=== PATIENT | female | born 1965 | race Caucasian/White ===

== ENCOUNTER 2016-11-22 16:49 | Observation (INO) | payer OTHER ==
[~2016-11-22] VITALS: Ht 154.9 cm; Wt 126.2 kg
--- NOTE | ~2016-11-22 | EKG ---
PATIENT: BRADEN TRACY UNIT #: [id number] Ventricular Rate: 70 BPM Atrial Rate: 70 BPM P-R Interval: 170 ms QRS Duration: 78 ms Q-T Interval: 434 ms QTC Calculation(Bezet): 468 ms P [place]: 58 degrees Calculated R [place]: 12 degrees Calculated T [place]: 68 degrees Diagnosis Line: Normal sinus rhythm Diagnosis Line: Normal ECG Diagnosis Line: When compared with ECG of 22-NOV-2016 16:51, Diagnosis Line: No significant change was found Diagnosis Line: Confirmed by OSMAN ACEVEDO MD ([id number]) on Diagnosis Line: 11/24/2016 10:38:39 PM INTERPRETING MD: EDUAR
--- NOTE | ~2016-11-22 | CR72 ---
[facility] A Service of [facility] RADIOLOGY TEXT RESULTS PATIENT: BRADEN TRACY LOCATION: [facility] 570-01 : [birth year] UNIT #: [id number] AGE: [address]: Yuri Moses MD SEX: F ORDER DR: [id number] [facility] [address] [place], [place] [address] [id number] I MR#: [id number] Acc #: [id number] NAME: BRADEN TRACY : 1965 SEX: F STUDY DATE/TIME: 11/22/2016 18:49 UNIT: [facility] ROOM: [facility] STUDY DESCRIPTION: CR Chest Single View Portable Attending Physician: Yuri Moses M.D. Ordering Physician: Lazarus Conte M.D. Primary Care Physician: Ivania Berman M.D. MEDICAL IMAGING REPORT This report is preliminary unless electronic signature is present EXAM Chest x-ray single-view portable HISTORY Chest pain, COPD, asthma, congestion, symptoms for a week. COMMENT Single frontal portable view chest timed 18:49 11/22/16 compared to 11/15/2016. There is borderline cardiac silhouette enlargement. No acute infiltrate or acute congestive failure. No pleural effusion or pneumothorax. IMPRESSION Borderline heart size otherwise no active disease. Dictated by... Fatmata Berumen M.D. THIS IS AN ELECTRONICALLY VERIFIED REPORT Fatmata Berumen M.D. at 11/23/2016 2:11 PM STARR/steve TD: 11/23/2016 08:18 JOB #: [id number] MEDICAL IMAGING REPORT Page 1 of 1 COPY
--- NOTE | ~2016-11-22 | HP ---
Unit #: [id number] #: [id number] Patient: BRADEN TRACY [id number] [address] [place], [place] [address] [id number] MR#: [id number] NAME: BRADEN TRACY ROOM: 570 Age: 50 Sex: F Admission Date: 11/22/2016 : 1965 Attending Physician: Yuri Moses M.D. Primary Care Physician: Ivania Berman M.D. HISTORY AND PHYSICAL HISTORY OF PRESENT ILLNESS This is a 50-year-old female with a history of hypertension, diabetes, hyperlipidemia, likely COPD or obstructive sleep apnea and continues to smoke, and chronic pain syndrome, who presented to the emergency room with complaint of pain in her left anterior chest wall that radiated up into the left shoulder. Patient states that this pain is more exertional most of the time; however, most of her issues now she feels is her dyspnea which is worsening over the past few weeks. She says it has gotten worse over the past week with minimal exertion. She also complains of fatigue. She says she has to lay down during the middle of the day which is something unusual. She denies any cough, fever, or chills. She denies any dizziness, presyncope, or syncope. No palpitations. Has occasional dry cough. No fever or chills. In the emergency room, patient's blood pressure was 172/84, heart rate 89, respirations 16, temperature 97.4, and O2 saturation was 99% on room air. Her initial chest x-ray shows borderline heart size; otherwise, nothing acute. EKG shows normal sinus rhythm with ventricular rate 64 beats per minute and nothing acute. Initial labs: Patient's initial cardiac enzymes are negative. Creatinine 0.8. Initial cardiac enzymes are negative. CBC is normal. Patient has received aspirin 325, along with an inch of nitroglycerin paste, and patient was admitted for further evaluation and workup. PAST MEDICAL HISTORY 1. Cardiac cath in 2004 revealed a short left main, small LAD, normal left circumflex, RCA had 20% stenosis, and normal LV function. 2. Dobutamine stress test in 2007 showed a fixed defect in the anterior wall of the left ventricle, old infarct versus tissue artifact, EF of 78%, and no ischemia. 3. A 2D echo in November 2013 showed LVEF of 55% and trace mitral regurgitation. 4. Hypertension. 5. Diabetes mellitus type 2. 6. Hyperlipidemia. 7. Questionable obstructive sleep apnea but has COPD. 8. Bipolar disorder. 9. Hypothyroidism. 10. Obesity, weight 276 pounds with a BMI of 52. 11. Lap-Band. 12. Reformed smoker. PAST SURGICAL HISTORY 1. Lap-Band. Unit #: [id number] #: [id number] Patient: BRADEN TRACY 2. Kidney stones removed. 3. Hysterectomy. 4. section x1. 5. Cholecystectomy. HOME MEDICATIONS 1. Advair Diskus 250/50 at 1 inhalation twice daily. 2. Tylenol 650 mg every 6 hours p.r.n. 3. Aspirin 81 mg p.o. daily. 4. Crestor 20 mg p.o. daily. 5. Estrace 2 mg p.o. daily. 6. Lasix 20 mg p.o. twice daily. 7. Neurontin 300 mg p.o. 3 times daily. 8. Hydrocodone and acetaminophen 10/300 at 1 tablet p.o. 4 times daily p.r.n. 9. Levothyroxine 75 mcg p.o. daily. 10. Ativan 2 mg p.o. 3 times daily. 11. Metformin 1000 mg p.o. twice daily. 12. Metoprolol 50 mg p.o. twice daily. 13. Omeprazole 40 mg p.o. daily. 14. Ondansetron 4 mg p.o. every 4 hours p.r.n. for nausea. 15. Actos 30 mg p.o. daily. 16. Potassium chloride 10 mEq p.o. daily. 17. Remeron 45 mg p.o. at bedtime. 18. Seroquel 600 mg p.o. at bedtime. 19. Temazepam 30 mg p.o. at bedtime. 20. Zanaflex 4 mg p.o. 3 times daily. 21. Xopenex 2 puffs every 4 hours p.r.n. ALLERGIES Sulfonamides, quinolones, ibuprofen, ciprofloxacin. SOCIAL HISTORY Patient lives with her family. She quit smoking about 15 years ago. No alcohol or illicit drug abuse. FAMILY HISTORY Her mother had a pacemaker. Her father was in generally well health. Her brother had COPD and congestive heart failure. REVIEW OF SYSTEMS CONSTITUTIONAL: Denies fever or chills. No recent weight gain or weight loss. HEENT: Denies headache or dizziness. No visual or hearing changes. NECK: No lymphadenopathy or thyromegaly and no difficulty swallowing. CARDIOVASCULAR: Some left anterior chest wall pain present. Denies palpitations. Increased lower extremity edema which has improved in the last few days. PULMONARY: Increased shortness of breath with minimal exertion. Has three to four pillow orthopnea. Denies paroxysmal nocturnal dyspnea. GASTROINTESTINAL: Denies nausea, vomiting, diarrhea, or abdominal pain. NEUROLOGICAL: No focal weakness. PHYSICAL EXAMINATION GENERAL: Ms. Tracy is a 50-year-old white female in no acute respiratory distress. She is awake, alert, and oriented. VITAL SIGNS: Blood pressure is 108/60, heart rate 60, respirations 18, temperature 97.6, and O2 saturation is 95% on room air. Unit #: [id number] #: [id number] Patient: BRADEN TRACY NECK: Trachea midline. No thyromegaly or lymphadenopathy. Normal carotid upstrokes. No jugular venous distention. HEART: S1 and S2, regular rate and rhythm. No clicks, murmurs, or rubs. LUNGS: Very diminished, otherwise clear. ABDOMEN: Obese, soft, and nontender. EXTREMITIES: Pedal pulses are palpable with 1+ pedal edema. DIAGNOSTIC STUDIES LABORATORY: Glucose is 106, BUN 13, creatinine 0.8, eGFR 87.3, sodium 134, potassium 3.5, chloride 100, CO2 is 26, calcium 8.3, total protein 7.2, albumin 3.8, bilirubin total 0.3, AST 28, ALT 18, and alkaline phosphatase is 88. BNP is 26. WBC is 4, hemoglobin 12.1, hematocrit 37.2, and platelets 232,000. Initial cardiac enzymes: CK-MB is less than 1 and troponin less than 0.05; CK-MB is less than 1 and troponin less than 0.05. IMAGING: Chest x-ray shows borderline heart; otherwise, nothing active. CARDIOLOGY: EKG normal sinus rhythm, ventricular rate 84 beats per minute, slow R wave progression, low voltage in inferior and anterior leads. IMPRESSION 1. Chest pain, left shoulder pain, and worsening dyspnea of questionable etiology. 2. Mild exacerbation of chronic obstructive pulmonary disease and questionable obstructive sleep apnea. 3. Hypertension. 4. Diabetes mellitus type 2. 5. Hyperlipidemia. 6. Hypothyroidism. 7. Left ventricular ejection fraction of 55% back in 2013. 8. Bipolar. 9. Obesity, body mass index 52. PLAN 1. So far, cardiac enzymes are negative and EKG is unremarkable. The patient has multiple complaints along with her multiple comorbidities and symptoms. Dr. Moses had a long discussion with the patient and recommends a cardiac catheterization to further evaluation. May do the right and the left to evaluate for any pulmonary artery hypertension. Considered a stress test, but that likely is limited due to her morbid obesity. She had a stress test back in 2007 that showed a fixed defect that could have been tissue artifact or an old infarct. 2. Explained to the patient risks and benefits of the cardiac cath including the risk of bleeding, myocardial infarction, stroke, and even . Patient verbalizes understanding and agrees to proceed. 3. Obtain a fasting lipid profile and TSH and evaluate. 4. Obtain a 2D echo to evaluate LV function and valves. 5. BNP is normal. 6. Continue on nitroglycerin paste, Lipitor, Lopressor, and aspirin. Monitor labs. 7. Patient's chest x-ray looks essentially normal and will hold off on any additional Lasix at this time. The patient states she had some Lasix outpatient from her PCP that helped her decrease her swelling in her ankles. 8. Continue on aspirin and also daily subcutaneous Lovenox for DVT Unit #: [id number] #: [id number] Patient: BRADEN TRACY prophylaxis. 9. Further recommendations pending per Dr. Moses. 1. Dictated by Kami Patricio A.P.R.N. for Rianna Agustin TD: 11/23/2016 16:03 JOB #: [id number] HISTORY AND PHYSICAL Page 1 of 1 X Kami Patricio APRN HISTORY AND PHYSICAL
--- NOTE | ~2016-11-22 | BMI ---
[facility] Nutrition Therapy DATE: 11/23/16 Patient: BRADEN TRACY Physician: LESA Address: [address] [place] [address] Room/Bed: [address] [place] [address], Zip: [place] [address] Admit Date: 11/22/16 Date of : [birth year] Height: 5 1 Weight: 276 125.4 HIGH BMI NOTE: DX: 50 y/o female admitted with chest pain ANTHROPOMETRICS: Ht: 61", Wt: 125.4 kg, BMI: 52 (stage III obese) DIET: healthy heart INTERVENTION: restricted diet, meds/fluids per MD RECOMMENDATIONS: No updated H&P available. Agree with healthy heart diet to promote a gradual weight loss towards a healthy BMI range. If pt has hx of DM add consistent carb restriction. Respectfully, Kera Heller RD, LD [facility] cc: client file
--- NOTE | ~2016-11-22 | DS ---
Unit #: [id number] #: [id number] Patient: BRADEN TRACY [id number] [place], [place] [address] [id number] I MR#: [id number] NAME: BRADEN TRACY ROOM: 570 Age: 50 Sex: F Admission Date: 11/22/2016 : 1965 Discharge Date: 11/25/2016 Attending Physician: Yuri Moses M.D. Primary Care Physician: Ivania Berman M.D. DISCHARGE SUMMARY DISCHARGE DIAGNOSES 1. Chest pain, ruled out for myocardial infarction. 2. Status post right and left cardiac catheterization on 11/24/2016 at [facility] per Dr. Moses, which revealed normal coronaries. Normal ejection fraction. Normal right-sided pressures. Medical management. 3. Previous cardiac catheterization in 2004 revealed a short left main, small LAD, normal left circumflex and 20% stenosis in the right coronary artery. Ejection fraction normal. 4. Dobutamine stress test in 2007 revealed a fixed defect in the anterior wall. Questionable old infarct versus tissue artifact. Ejection fraction 78%. No ischemia. 5. Two-dimensional echocardiogram on 11/23/2016 was a technically difficult study. Valves not well visualized. Ejection fraction 50%-55%. Mildly dilated left atrium. Mildly dilated right ventricle. Mild mitral regurgitation. Mild tricuspid regurgitation. RVSP normal. No pericardial effusion. 6. Hypertension. 7. Hyperlipidemia. 8. Diabetes mellitus type 2. 9. Mild exacerbation of chronic obstructive pulmonary disease. 10. Questionable obstructive sleep apnea. 11. Hypothyroidism. 12. Bipolar disorder. 13. Obesity with a BMI of 52. 14. Active tobacco abuse. DISCHARGE MEDICATIONS 1. Advair 250/50 one inhalation b.i.d. 2. Tylenol 650 mg p.o. p.r.n. pain. 3. Neurontin 300 mg p.o. t.i.d. 4. Remeron 45 mg p.o. at bedtime. 5. Metformin 1000 mg p.o. b.i.d. Resume on 11/26/2016. 6. Actos 30 mg p.o. daily. 7. Zofran 4 mg p.o. q.4 h. p.r.n. nausea. 8. Seroquel 600 mg p.o. at bedtime. 9. Ativan 2 mg p.o. t.i.d. 10. Temazepam 30 mg p.o. at bedtime. 11. Metoprolol tartrate 50 mg p.o. b.i.d. 12. Furosemide 20 mg p.o. b.i.d. 13. Estradiol 2 mg p.o. daily. 14. Crestor 20 mg p.o. daily. 15. Aspirin 81 mg p.o. daily. 16. Hydrocodone/acetaminophen 10/300 mg 1 tablet p.o. q.i.d. p.r.n. Unit #: [id number] #: [id number] Patient: BRADEN TRACY. 17. Omeprazole 40 mg p.o. daily. 18. Potassium chloride 10 mEq p.o. daily. 19. Zanaflex 4 mg p.o. t.i.d. 20. Xopenex 2 puffs inhalation q.4 h. p.r.n. shortness of breath. 21. Levothyroxine 75 mcg p.o. daily. HOSPITAL COURSE This is a 50-year-old female with a past medical history of hypertension, hyperlipidemia, diabetes and chronic obstructive pulmonary disease, with questionable obstructive sleep apnea. The patient also has chronic pain syndrome, hypothyroidism and bipolar disorder. She has a BMI of 52 and weighs 276 pounds. She does have a history of lap band surgery. She presented to the hospital on 11/22/2016 with complaints of chest pain with radiation into the arm. She also has shortness of breath. Please see details in history and physical. She ruled out for myocardial infarction. EKG was nonacute. Chest x-ray revealed a borderline heart size, but no evidence of congestive heart failure. She was recommended to undergo a cardiac catheterization due to symptoms as well as multiple comorbidities. She did have a stress test previously in 2007 that had a fixed defect, which could have been from tissue artifact or an old infarct. The patient was agreeable and was taken for cardiac catheterization on 11/23/[address] Moses. Right and left cardiac catheterization was completed and revealed normal right-sided pressures. Coronary angiography revealed normal coronaries. She tolerated the procedure well and was transferred to recovery. Once her vascular checks are completed and she is ambulated she will be discharged home. No new prescriptions have been provided. She is instructed to follow up with her primary care provider in one to two weeks. A follow-up appointment has been arranged with Dr. Moses on 01/18/2017 at 1:45 p.m. Post catheterization instructions have been provided to the patient. DIAGNOSTIC DATA LABORATORY: White blood cell count 3.4, hemoglobin 11.9, hematocrit 35.9, platelets 195, sodium 140, potassium 4.0, chloride 103, CO2 29, BUN 14, creatinine 0.7, glucose 93, troponin 0.03 and 0.05, BNP 26, total cholesterol 117, triglycerides 104, LDL 59, HDL 37, TSH 4.34. IMAGING: Chest x-ray revealed borderline heart size, otherwise no active disease. CARDIOVASCULAR: Electrocardiogram revealed normal sinus rhythm. No acute ST or T wave changes. PHYSICAL EXAMINATION VITALS: Temperature 97.6, pulse 57, blood pressure 136/70. CONSTITUTIONAL: This is a 50-year-old female in no acute distress. SKIN: Warm and dry. NECK: Supple. No jugular vein distension. No hepatojugular reflux. Normal carotid upstrokes. No carotic bruits auscultated. HERAT: S1 and S2. Regular rate and rhythm. No murmurs, rubs or gallops. LUNGS: Bilateral breath sounds have good air entry throughout all lung obrien. Respirations even and unlabored. No rales, rhonchi or wheezes. ABDOMEN: Soft, nontender and nondistended. Positive bowel sounds auscultated times four quadrants. No ascites noted. EXTREMITIES: Bilateral extremities have no pretibial edema. Dorsalis pedis and posterior tibial pulses 2+. Capillary refill less than 3 seconds. Unit #: [id number] #: [id number] Patient: BRADEN TRACY DISPOSITION The patient will be discharged home today. FOLLOWUP 1. Follow up with primary care provider in one to two weeks. 2. Follow up with pulmonary as needed. 3. Follow up with Dr. Moses on 01/18/2017 at 1:45 p.m. DISCHARGE INSTRUCTIONS 1. Post catheterization instructions provided. 2. No new prescriptions upon discharge. 3. The patient has been instructed to refrain from tobacco abuse. 4. The patient would benefit from weight loss by means of exercise and decreased caloric intake. Dictated by... Jaylyn Keating APRN for Yuri Moses M.D. TR/gz TD: 11/25/2016 09:46 JOB #: [id number] DISCHARGE SUMMARY Page 1 of 1 X X DISCHARGE SUMMARY
--- NOTE | ~2016-11-22 | EKG ---
PATIENT: BRADEN TRACY UNIT #: [id number] Ventricular Rate: 84 BPM Atrial Rate: 84 BPM P-R Interval: 160 ms QRS Duration: 76 ms Q-T Interval: 384 ms QTC Calculation(Bezet): 453 ms P [place]: 52 degrees Calculated R [place]: 2 degrees Calculated T [place]: 64 degrees Diagnosis Line: Normal sinus rhythm Diagnosis Line: Normal ECG Diagnosis Line: When compared with ECG of 19-NOV-2013 12:58, Diagnosis Line: No significant change was found Diagnosis Line: Confirmed by OSMAN ACEVEDO MD ([id number]) on Diagnosis Line: 11/22/2016 9:49:04 PM INTERPRETING : EDUAR
[~2016-11-22 16:49] MED LIST: ACETAMINOPHEN PO; ACTOS; ACTOS PO; ACTOS30 MG PO; ADVAIR 250-501 EAC1 IH; ADVAIR 2501 DISK W/D PO; ALBUTEROL17 GM; AMOXICILLIN PO; ASPIRIN PO; ASPIRIN81 M2 PO; ATIVAN; ATIVAN PO; ATIVAN2 M1 PO; BUMEX PO; CARDIZEM SR PO; CLEOCIN150 M1 PO; COMBIVENT INH14.7 GM INH; CRESTOR; CRESTOR PO; CRESTOR10 MG PO; DEPAKOTE; DICLOFENAC PO; DOLOBID500 MG PO; ESTRACE PO; ESTRACE2 M1 PO; FLAGYL PO; FLEXERIL10 M1 PO; GABAPENTIN300 MG PO; GLUCOPHAGE XR500 MG PO; HYDROCODONE-APA1 T42 PO; JANUMET PO; K-DUR20 ME1 PO; KCL; KCL PO; LANTUS100 U/ML INJ; LANTUS100 U/ML SUBQ; LASIX PO; LASIX20 MG PO; LEVOTHYROXINE75 MCG; LEVOTHYROXINE75 MCG PO; LISINOPRIL PO; LOC PO; LOPID600 MG PO; LOPRESSOR PO; LORTAB 2.5/5001 TAB PO; MACROBID 100 M100 MG PO; MACROBID100 MG PO; MACRODANTIN PO; MAGIC MOUTHWASH; MELATONIN3 MG; METFORMIN PO; NAPROSYN500 MG PO; NEURONTIN PO; NOVOLOG100 U/ML SUBQ; OMEPRAZOLE40 MG PO; PERCOCET 51 UDTAB 5/ PO; PHENERGAN25 MG PO; POTASSIUM CHLO20 ME1; PREDNISOLO15 MG/5 ML PO; PREDNISONE PO; PREDNISONE50 MG PO; PRILOSEC; PRILOSEC40 MG; PYRIDIUM PO; REMERON; REMERON PO; REMERON45 MG PO; RITE-AID PHARMACY; SEROQUEL; SEROQUEL PO; SEROQUEL XR300 MG PO; SEROQUEL50 MG; SPIRIVA18 MCG INH; SYNTHROID PO; TEMAZEPAM; TEMAZEPAM PO; TEMAZEPAM30 MG PO; TIZANIDINE HCL4 M1 PO; TOPROL XL; TOPROL XL PO; TRICOR PO; TYLENOL #3 PO; VIBRAMYCIN100 M1 PO; VICODIN 5/500 T1 TAB PO; XOPENEX HFA15 GM NEB; XOPENEX1.25 MG/0. NEB; ZANAFLEX; ZITHROMAX PO; ZOFRAN
[2016-11-22 17:42] LABS: BASOPHIL% 0.6 % (0-2.5); EOSINOPHIL# 0.2 X10e3 (0-0.7); EOSINOPHIL% 4.1 % (0.0-7.0); HEMATOCRIT 37.2 % (35.0-45.0); HEMOGLOBIN 12.1 gm/dL (12.0-16.0); LYMPHOCYTE# 1.6 X10e3 (1.0-3.5); LYMPHOCYTE% 40.1 % (17.0-45.0); MEAN CELL VOLUME 88.1 FL (83-96); MEAN CORPUSCULAR HEMOGLOBIN 28.7 PG (28-34); MEAN CORPUSCULAR HGB CONC 32.5 g/dL (30-36); MEAN PLATELET VOLUME 8.2 FL (6.5-11.5); MONOCYTE# 0.4 X10e3 (0-1.0); NEUTROPHIL# 1.8 X10e3 (1.5-7.1); NEUTROPHIL% 44.2 % (40-75); PLATELET COUNT 232 X10e3 (140-420); RED BLOOD COUNT 4.21 X10e (3.90-5.30); RED CELL DISTRIBUTION WIDTH 15.2 % (11.0-15.5)
[2016-11-22 17:44] LABS: DIFF IND NO
[2016-11-22 18:20] LABS: ALBUMIN SERUM 3.8 g/dL (3.5-5.0); ALKALINE PHOSPHATASE 88 U/L (32-92); ALT (SGPT) 18 U/L (10-40); AST (SGOT) 28 U/L (10-42); BILIRUBIN, DIRECT <0.1 mg/dL (0.0-0.2); BILIRUBIN,INDIRECT 0.2 mg/dL (0.0-0.9); BILIRUBIN,TOTAL 0.3 mg/dL (0.2-2.0); BLOOD UREA NITROGEN 13 mg/dL (9-23); BUN/CREATININE RATIO 16.25; CALCIUM SERUM 8.3 mg/dL (8.4-10.2); CARBON DIOXIDE 26 mmol/L (22-31); CHLORIDE 100 mmol/L (100-111); CREATININE SERUM 0.8 mg/dL (0.6-1.4); GLOM FILT RATE Estimated 87.3 mL/min (>60); GLUCOSE FASTING 106 mg/dL (70-110); POTASSIUM 3.5 mmol/L (3.5-5.1); PROTEIN TOTAL SERUM 7.2 g/dL (6.0-8.3); SODIUM 134 mmol/L (135-145)
[2016-11-22 18:53] LABS: POC - CKMB <1.0 ng/mL (0.0-7.9); POC - TROPONIN <0.05 ng/mL (<=0.05)
[2016-11-22 20:09] LABS: POC - CKMB <1.0 ng/mL (0.0-7.9); POC - TROPONIN <0.05 ng/mL (<=0.05)
[2016-11-22] MEDS ORDERED: ADVAIR 250-501 EAC1 INH (23:04)
[2016-11-22] MEDS ORDERED: ASPIRIN81 MG PO (23:06)
[2016-11-22] MEDS ORDERED: CRESTOR PO (23:06)
[2016-11-22] MEDS ORDERED: TYLENOL325 M1 PO (23:06)
[2016-11-22] MEDS ORDERED: ESTRACE2 MG PO (23:07)
[2016-11-22] MEDS ORDERED: LASIX20 MG PO (23:07)
[2016-11-22] MEDS ORDERED: NEURONTIN300 MG PO (23:08)
[2016-11-22] MEDS ORDERED: HYDROCODON-ACE1 EA11 PO (23:08)
[2016-11-22] MEDS ORDERED: LEVO-T75 MCG PO (23:09)
[2016-11-22] MEDS ORDERED: METFORMIN HCL1000 M1 PO (23:10)
[2016-11-22] MEDS ORDERED: ATIVAN2 M1 PO (23:10)
[2016-11-22] MEDS ORDERED: OMEPRAZOLE40 M1 PO (23:11)
[2016-11-22] MEDS ORDERED: LOPRESSOR PO (23:11)
[2016-11-22] MEDS ORDERED: ONDANSETRON HCL4 M1 PO (23:13)
[2016-11-22] MEDS ORDERED: ACTOS30 MG PO (23:13)
[2016-11-22] MEDS ORDERED: POTASSIUM CHLO10 MEQ PO (23:14)
[2016-11-22] MEDS ORDERED: REMERON45 MG PO (23:14)
[2016-11-22] MEDS ORDERED: TEMAZEPAM30 MG PO (23:15)
[2016-11-22] MEDS ORDERED: SEROQUEL300 MG PO (23:15)
[2016-11-22] MEDS ORDERED: ZANAFLEX4 M1 PO (23:16)
[2016-11-22] MEDS ORDERED: XOPENEX45 MCG/15 PO (23:17)
[2016-11-23 08:05] LABS: CK TOTAL 43 IU/L (26-140)
[2016-11-23 09:47] LABS: CHOLESTEROL 117 mg/dL (0-200); HDL CHOLESTEROL 37 mg/dL (35-95); LDL CHOLESTEROL 59 mg/dL (-130); LDL/HDL RATIO 2 RATIO (0-4); TRIGLYCERIDES 104 mg/dL (10-160)
[2016-11-24 07:15] LABS: BASOPHIL% 0.6 % (0-2.5); EOSINOPHIL# 0.1 X10e3 (0-0.7); EOSINOPHIL% 3.6 % (0.0-7.0); HEMATOCRIT 35.9 % (35.0-45.0); HEMOGLOBIN 11.9 gm/dL (12.0-16.0); LYMPHOCYTE# 1.4 X10e3 (1.0-3.5); LYMPHOCYTE% 40.7 % (17.0-45.0); MEAN CELL VOLUME 87.8 FL (83-96); MEAN PLATELET VOLUME 8.4 FL (6.5-11.5); MONOCYTE# 0.4 X10e3 (0-1.0); MONOCYTE% 11.4 % (3.0-12.0); NEUTROPHIL# 1.5 X10e3 (1.5-7.1); NEUTROPHIL% 43.7 % (40-75); PLATELET COUNT 195 X10e3 (140-420); RED BLOOD COUNT 4.09 X10e (3.90-5.30); RED CELL DISTRIBUTION WIDTH 15.3 % (11.0-15.5); WHITE BLOOD COUNT 3.4 X10e3 (4.0-10.5)
[2016-11-24 07:21] LABS: DIFF IND NO
[2016-11-24 07:22] LABS: INR 1.1; PARTIAL THROMBOPLASTIN TIME 28.9 SECONDS (23.5-31.3); PROTHROMBIN TIME (PATIENT) 11.5 SECONDS (10.0-11.7)
[2016-11-24 07:35] LABS: CALCIUM SERUM 8.7 mg/dL (8.4-10.2); CREATININE SERUM 0.7 mg/dL (0.6-1.4); GLOM FILT RATE Estimated 102.5 mL/min (>60)
== END 2016-11-25 06:59 | disposition home or self-care (01) ==
LOC: CED 16:49 → CEDOF 20:10 → CED 20:29 → CEDOF 20:29 → C5C 20:29 → CEDOF 21:35 → C5C 21:35
PROVIDERS: Emergency Medicine; Internal Medicine Cardiovascular Disease; Nurse Practitioner
DX: R07.9 Chest pain, unspecified (principal); I25.10 Atherosclerotic heart disease of native coronary artery without angina pectoris; I34.0 Nonrheumatic mitral (valve) insufficiency; I36.1 Nonrheumatic tricuspid (valve) insufficiency; E78.5 Hyperlipidemia, unspecified; I11.9 Hypertensive heart disease without heart failure; E11.9 Type 2 diabetes mellitus without complications; J44.1 Chronic obstructive pulmonary disease with (acute) exacerbation; E03.9 Hypothyroidism, unspecified; F31.9 Bipolar disorder, unspecified; E66.9 Obesity, unspecified; D64.9 Anemia, unspecified; E11.42 Type 2 diabetes mellitus with diabetic polyneuropathy; D50.9 Iron deficiency anemia, unspecified; M62.838 Other muscle spasm; F17.210 Nicotine dependence, cigarettes, uncomplicated; Z68.43 Body mass index [BMI] 50.0-59.9, adult; Z79.82 Long term (current) use of aspirin; Z79.899 Other long term (current) drug therapy; Z88.2 Allergy status to sulfonamides; Z88.1 Allergy status to other antibiotic agents; Z88.8 Allergy status to other drugs, medicaments and biological substances; Z98.84 Bariatric surgery status; Z87.442 Personal history of urinary calculi; Z90.710 Acquired absence of both cervix and uterus
CPT/HCPCS: 36415; 71010; 80048; 80061; 80076; 82550; 82553; 82810; 82947; 83880; 84443; 84484; 84703; 85025; 85610; 85730; 93005; 93306; 94640; 94664; 94760; 96372; 99152; 99153; 99285; C1769; C1887; C1894; G0378; J1644; J1650; J2250; J3010